=== PATIENT | male | born 1985 | race Caucasian/White ===

== ENCOUNTER 2017-07-22 07:19 | Outpatient (CLI) | payer BC, OTHER | END 2017-07-22 07:20 | disposition home or self-care (01) | LOC: BICULT 07:19 | PROVIDERS: ATTEND Internal Medicine Nephrology | DX: N20.0 Calculus of kidney (principal) | CPT/HCPCS: 76770 ==

== ENCOUNTER 2017-11-08 14:25 | Outpatient (CLI) | payer OTHER ==
--- NOTE | 2017-11-08 15:56 | RAD ---
FOUR VIEWS OF THE LEFT KNEE: Comparison: 02-08-16 History: Left knee pain. FINDINGS: Four views of the left knee shows the patient to be status post ORIF of the distal femur with a plate and screws. There are also screws in the proximal tibia. No perihardware lucency is identified. No k nee effusion is seen. No significant joint space narrowing or osteophyte formation is seen in the lef t knee. IMPRESSION: Post-surgical changes of the femur and tibia without evidence of acute osseous abnormality. POS: [facility]
== END 2017-11-08 14:26 | disposition home or self-care (01) ==
LOC: SCSRAD 14:25
PROVIDERS: ATTEND Physical Medicine & Rehabilitation
DX: M25.562 Pain in left knee (principal); Z98.890 Other specified postprocedural states

== ENCOUNTER 2019-01-10 02:51 | Outpatient (CLI) | payer OTHER ==
[2019-01-10 14:06] LABS: #Basophils 0.1 thou/uL (0.0-0.2); #Eosinphils 0.1 thou/uL (0.0-0.7); #Lymphocytes 1.8 thou/uL (1.20-3.40); #Monocytes 0.6 thou/uL (0.11-0.59); #Neutrophils 4.4 thou/uL (1.40-6.50); %Eosinophils 1.7 % (0.0-10.0); %Monocytes 8.4 % (0.0-10.0); %Neutrophils 62.9 % (42.0-75.0); Hemoglobin 15.1 g/dL (14.0-18.0); Mean Corpuscular HGB CONC 34.1 g/dL (32.0-36.0); Mean Corpuscular Hemoglobin 30.1 pg (27.0-31.0); Mean Corpuscular Volume 88.1 fL (78.0-98.0); Mean Platelet Volume 7.4 fL (7.4-10.4); Platelet Count 198 thou/uL (130-400); RBC Distribution Width 11.5 % (11.5-14.5); Red Blood Cell (RBC) Count 5.04 mill/uL (4.70-6.10)
[2019-01-10 14:40] LABS: Anion Gap 10 mmol/L (10-20); BUN (Urea Nitrogen) 15 mg/dL (8.9-20.6); Calc. Creatinine Clearance 0 mL/min (70-130); Calcium 9.5 mg/dL (7.8-10.44); Carbon Dioxide 28 mmol/L (22-29); Chloride 107 mmol/L (98-107); Estimated GFR-MDRD Greater than 90; Glucose 83 mg/dL (70-105); Potassium 4.4 mmol/L (3.5-5.1); Sodium 141 mmol/L (136-145)
== END 2019-01-10 02:52 | disposition home or self-care (01) ==
LOC: LABBT 02:51
PROVIDERS: ATTEND Orthopaedic Surgery
DX: Z01.812 Encounter for preprocedural laboratory examination (principal); S83.281A Other tear of lateral meniscus, current injury, right knee, initial encounter
CPT/HCPCS: 80048; 85025

== ENCOUNTER 2023-03-29 11:43 | Outpatient (CLI) | payer MEDICARE ==
[2023-03-29 12:52] LABS: #Basophils 0.1 10x3/uL (0.0-0.2); #Eosinphils 0.2 10x3/uL (0.0-0.5); #Monocytes 0.5 10x3/uL (0.0-1.1); #Neutrophils 3.1 10x3/uL (1.5-8.4); %Basophils 0.9 % (0.0-2.0); %Eosinophils 3.6 % (0.0-6.0); %Lymphocytes 30.6 % (18.0-47.0); %Monocytes 8.5 % (0.0-10.0); %Neutrophils 56.2 % (40.0-75.0); Hematocrit 45.3 % (38.8-50.0); Hemoglobin 15.3 g/dL (13.5-17.5); Mean Corpuscular HGB CONC 33.8 g/dL (32.0-36.0); Mean Corpuscular Hemoglobin 29.7 pg (27.0-33.0); Mean Corpuscular Volume 87.8 fl (81.2-95.1); Mean Platelet Volume 10.5 fl (7.4-10.4); Platelet Count 192 10x3/uL (150-450); RBC Distribution Width 11.9 % (11.5-14.5); Red Blood Cell (RBC) Count 5.16 10x6/uL (4.32-5.72); White Blood Cell (WBC) Count 5.6 10x3/uL (3.5-10.5)
[2023-03-29 13:20] LABS: ALT (SGPT) 26 U/L (8-55); AST (SGOT) 18 U/L (5-34); Albumin 4.4 g/dL (3.5-5.0); Alkaline Phosphatase 60 U/L (40-110); Anion Gap 13 mmol/L (10-20); BUN (Urea Nitrogen) 21 mg/dL (8.9-20.6); Bilirubin, Direct 0.1 mg/dL (0.1-0.3); Bilirubin, Total 0.4 mg/dL (0.2-1.2); Calc. Creatinine Clearance 0 mL/min (70-130); Calcium 8.8 mg/dL (7.8-10.44); Carbon Dioxide 22 mmol/L (22-29); Chloride 112 mmol/L (98-107); Estimated GFR 108; Glucose 84 mg/dL (70-105); Potassium 4.8 mmol/L (3.5-5.1); Protein, Total 6.6 g/dL (6.0-8.3); Sodium 142 mmol/L (136-145)
== END 2023-03-29 11:44 | disposition home or self-care (01) ==
LOC: LABBT 11:43
PROVIDERS: ATTEND Surgery
DX: Z01.812 Encounter for preprocedural laboratory examination (principal); K80.20 Calculus of gallbladder without cholecystitis without obstruction
CPT/HCPCS: 80048; 80076; 85025

== ENCOUNTER 2023-04-01 06:45 | Day surgery (SDC) | payer MEDICARE ==
[2023-03-29 12:47] VITALS: BMI 20.2
[2023-04-01] MEDS ORDERED: CEFAZOLIN 2 GM VIAL ONE (07:19)
[2023-04-01] MEDS ORDERED: Lidocaine 1% MPF 2 ML VIAL ONE (07:19)
[2023-04-01] MEDS ORDERED: Sodium Chloride 0.9% 100 ML ONE (07:20)
[2023-04-01] MEDS ORDERED: HYDROmorphone 0.5 MG/0.5 ML SYRINGE ONE (08:30)
[2023-04-01] MEDS ORDERED: Midazolam HCl 2 mg/2 ml Vial ONE (08:30)
[2023-04-01] MEDS ORDERED: fentaNYL PF 100 MCG/2 ML SYRINGE ONE (08:30)
[2023-04-01] MEDS ORDERED: SUGAMMADEX SODIUM 200 MG/2 ML VIAL ONE (08:31)
[2023-04-01] MEDS ORDERED: EPINEPHrine 1 MG/ML AMP ONE (08:43)
[2023-04-01] MEDS ORDERED: Bupivacaine 0.25% HCL 30 ML VIAL ONE (08:43)
[2023-04-01] MEDS ORDERED: Indocyanine Green 25 MG/10 ML VIAL ONE (08:43)
[2023-04-01] MEDS ORDERED: ePHEDrine Sulfate 50 MG/10 ML VIAL ONE ×2 (08:56)
[2023-04-01] MEDS ORDERED: Dexamethasone 20 MG/5 ML VIAL ONE (08:56)
[2023-04-01] MEDS ORDERED: PROPOFOL 200 MG/20 ML VIAL ONE (08:56)
[2023-04-01] MEDS ORDERED: Ondansetron PF 4 MG/2 ML Vial ONE (08:56)
[2023-04-01] MEDS ORDERED: Rocuronium Bromide 10 MG/ML (10ML VIAL) ONE (08:56)
[2023-04-01] MEDS ORDERED: Lidocaine 1% PF 5 ML VIAL ONE (08:56)
[2023-04-01] MEDS ORDERED: HYDROcodone/Acetaminophen 5/325 mg Tablet ONE (12:40)
== END 2023-04-01 12:50 | disposition home or self-care (01) ==
LOC: SDC 06:45
PROVIDERS: ATTEND Surgery
PROC: 0FT44ZZ Resection of Gallbladder, Percutaneous Endoscopic Approach (ICD-10-PCS; principal; 2023-04-01)
DX: K80.10 Calculus of gallbladder with chronic cholecystitis without obstruction (principal); K21.9 Gastro-esophageal reflux disease without esophagitis; Z79.899 Other long term (current) drug therapy; Z88.1 Allergy status to other antibiotic agents
CPT/HCPCS: 88304; J0171; J1100; J1170; J2250; J2405; J2704; J3490; S0020

== ENCOUNTER 2023-08-12 05:43 | Day surgery (SDC) | payer OTHER ==
[2023-08-09 15:14] VITALS: BMI 21.1
[2023-08-12] MEDS ORDERED: Vancomycin 1 GM/200 ML (FROZEN) BAG ONE (05:57)
[2023-08-12] MEDS ORDERED: Ketamine In 0.9 % NaCl 50 MG/5 ML SYRINGE ONE (06:59)
[2023-08-12] MEDS ORDERED: PROPOFOL 20 ML ONE (06:59)
[2023-08-12] MEDS ORDERED: Lidocaine 1% PF 5 ML VIAL ONE (06:59)
[2023-08-12] MEDS ORDERED: Fentanyl 250 MCG/5 ML VIAL ONE (07:00)
[2023-08-12] MEDS ORDERED: Midazolam HCl 2 mg/2 ml Vial ONE (07:00)
[2023-08-12] MEDS ORDERED: Sodium Chloride 0.9% 100 ML ONE (07:11)
[2023-08-12] MEDS ORDERED: Bupivacaine PF 0.5% 30 ML VIAL ONE (07:11)
[2023-08-12] MEDS ORDERED: CEFAZOLIN 2 GM VIAL ONE (07:13)
[2023-08-12] MEDS ORDERED: Ondansetron PF 4 MG/2 ML Vial ONE (07:30)
[2023-08-12] MEDS ORDERED: Dexamethasone 20 MG/5 ML VIAL ONE (07:30)
[2023-08-12] MEDS ORDERED: EPINEPHrine 1 MG/ML VIAL ONE (07:48)
[2023-08-12] MEDS ORDERED: HYDROcodone/Acetaminophen 5/325 mg Tablet ONE (09:13)
== END 2023-08-12 10:40 | disposition home or self-care (01) ==
LOC: SDC 05:43
PROVIDERS: ATTEND Orthopaedic Surgery
PROC: 0YP Anatomical Regions, Lower Extremities, Removal (ICD-10-PCS; principal; 2023-08-12)
DX: T84.84XA Pain due to internal orthopedic prosthetic devices, implants and grafts, initial encounter (principal); M79.652 Pain in left thigh; K21.9 Gastro-esophageal reflux disease without esophagitis; G44.009 Cluster headache syndrome, unspecified, not intractable; Z88.5 Allergy status to narcotic agent; Z88.1 Allergy status to other antibiotic agents; Z87.81 Personal history of (healed) traumatic fracture; Z98.890 Other specified postprocedural states; Z79.899 Other long term (current) drug therapy; Y83.9 Surgical procedure, unspecified as the cause of abnormal reaction of the patient, or of later complication, without mention of misadventure at the time of the procedure
CPT/HCPCS: J0171; J1100; J2250; J2405; J2704; J3010; J3370-JW; J3490; S0020